=== PATIENT | female | born 1995 | race Caucasian/White ===

== ENCOUNTER 2021-11-01 12:03 | Emergency (ER) | payer OTHER, SELFPAY ==
--- NOTE | ~2021-11-01 | US_ITS ---
EXAMINATION: US OB <=14 wk fetus w TV DATE: 11/01/2021 13:46 INDICATION: Bleeding and pelvic pain during first trimester TECHNIQUE: Real-time pelvic transabdominal and transvaginal ultrasound was performed. COMPARISON: None. FINDINGS: The uterus measures 8.5 x 3.0 x 3.8 cm. No intrauterine gestational sac is identified. The right ovary measures 2.4 x 1.5 x 2.1 cm. The left ovary measures 2.3 x 1.3 x 1.3 cm. There is normal vascular flow in the ovaries. There is no free fluid in the pelvis. IMPRESSION: 1. of unknown location. Although no intrauterine gestational sac is seen, this may be due t o early gestation. If the patient is clinically stable, recommend followup with serial beta-hCG and u ltrasound. Reviewed, dictated and finalized at location B. L ENG[employer]ING DIRECTOR IMPRESSION: 1. of unknown location. Although no intrauterine gestational sac is s een, this may be due to early gestation. If the patient is clinically stable, r ecommend followup with serial beta-hCG and ultrasound.
[2021-11-01 12:07] VITALS: BP 157/102; PULSE 76; RESP 18; TEMP 36.8; O2SAT 100
[2021-11-01 12:23] LABS: Basophils Absolute Auto 0.1 K/mm3 (0.0-0.1); Basophils Percent Auto 0.8 % (0.2-1.2); Eosinophils Absolute Auto 0.1 K/mm3 (0-0.3); Eosinophils Percent Auto 0.7 % (0-4.4); Hematocrit 41.6 % (37.0-47.0); Hemoglobin 13.8 g/dL (12.0-15.0); Immature Granulocyte Absolute 0.03 K/mm3 (0.00-0.031); Immature Granulocyte Percent A 0.3 % (0-0.5); Lymphocytes Percent Auto 37.2 % (18.3-44.2); Mean Corpuscular HGB Conc 33.2 g/dl (32-36); Mean Corpuscular Hemoglobin 30.1 pg (26-34); Mean Corpuscular Volume 90.6 fl (80-100); Mean Platelet Volume 9.2 fl (7.4-10.4); Monocytes Absolute Auto 1.1 K/mm3 (0.1-0.6); Monocytes Percent Auto 11.1 % (2.6-8.5); Neutrophils Absolute Auto 5.1 K/mm3 (1.3-6.7); Neutrophils Percent Auto 49.9 % (45.5-73.1); Platelet Count Result 459 k/mm3 (150-375); Red Blood Count 4.59 M/mm3 (4.2-5.4); Red Cell Distribution Width 12.8 % (11.5-14.5); White Blood Count 10.2 K/mm3 (4.5-10.0)
[2021-11-01 12:55] VITALS: BP 146/99; PULSE 76; RESP 18; O2SAT 99
[2021-11-01 12:56] LABS: Beta HCG Quantitative 15.35 mIU/ML
[2021-11-01 15:29] LABS: Alanine Aminotransferase 40 U/L (4-35); Albumin Level 4.9 g/dL (3.5-5.1); Alkaline Phosphatase 56 U/L (38-126); Anion Gap 10 mmol/L (8-16); Aspartate Amino Transferase 39 U/L (14-36); Bilirubin,Total 0.4 mg/dL (0.2-1.3); Blood Urea Nitrogen 9 mg/dL (7-17); Calcium 9.4 mg/dL (8.4-10.2); Carbon Dioxide 24 mmol/L (22-30); Chloride 102 mmol/L (98-107); Estimated CRCL calculation 100 ml/min; Estimated Glomerular Filt Rate > 60; Glucose 105 mg/dL (65-110); Potassium 3.9 mmol/L (3.4-5.0); Sodium 136 mmol/L (137-145)
--- NOTE | 2021-11-01 15:44 | ED.GENADULT ---
HPI - General Adult General Chief complaint: Vaginal Bleeding Stated complaint: vaginal bleeding/cramping Time Seen by Provider: 11/01/21 12:58 History of Present Illness HPI narrative: Patient is a 26-year-old female who presents ER with vaginal bleeding and . She had a positive test last Thursday 2 days after having missed her period. She is a G1, P0. She began having some vaginal cramping with spotting last night with increased bleeding and cramping today. She passed a small piece of material. No additional vaginal discharge. No fevers or chills or sweats. Related Data Home Medications Medication Instructions Recorded Confirmed escitalopram oxalate 20 mg tablet 20 mg PO DAILY 04/13/20 09/21/20 Allergies Allergy/AdvReac Type Severity Reaction Status Date / Time No Known Allergies Allergy Unverified 11/01/21 12:58 Review of Systems Review of Systems: All systems reviewed & are unremarkable except as noted in HPI and below Constitutional: Constitutional: Denies chills, Denies fever(s) and Denies weakness Gastrointestinal: Gastrointestinal: Reports abdominal pain, Denies diarrhea, Denies nausea and Denies vomiting Genitourinary: Genitourinary: Reports abnormal vaginal bleeding, Denies nocturia, Denies dysuria, Denies flank pain and Denies vaginal discharge [facility] Past Medical History Medical History Depression IBS (irritable bowel syndrome) Surgical History Surgical History No history of previous surgery Family History Family History Other Depression Social History Social History Smoking status: Current some day smoker Tobacco type: e-cigarettes/vaping Alcohol intake: current Exam Narrative: GENERAL: Well-appearing, well-nourished, and in no acute distress. HEAD: Normocephalic, atraumatic. CHEST: Clear to auscultation. No respiratory distress. HEART: Regular rate and rhythm. Normal peripheral pulses. ABDOMEN: Soft, nontender, nondistended. EXTREMITIES: Normal range of motion. No edema. SKIN: Warm, dry, no rash. NEURO: Alert and oriented x3. PSYCH: Normal mood and affect. Course Course Emergency Course: Discussed with Dr. Oliveira. Patient given bleeding precautions. Likely miscarriage. Needs to f/u on 11/04/21 for repeat lab work. Patient verbalized understanding treatment plan. Vital Signs Vital signs: Vital Signs Temperature 98.3 F 11/01/21 12:07 Pulse Rate 76 11/01/21 12:07 Respiratory Rate 18 11/01/21 12:07 Blood Pressure 157/102 H 11/01/21 12:07 Pulse Oximetry 100 11/01/21 12:07 Temperature 98.3 F 11/01/21 12:07 Pulse Rate 76 11/01/21 12:55 Respiratory Rate 18 11/01/21 12:55 Blood Pressure 146/99 H 11/01/21 12:55 Pulse Oximetry 99 11/01/21 12:55 Medical Decision Making Vital Signs Vital Signs: Vital Signs Temperature 98.3 F 11/01/21 12:07 Pulse Rate 76 11/01/21 12:07 Respiratory Rate 18 11/01/21 12:07 Blood Pressure 157/102 H 11/01/21 12:07 Pulse Oximetry 100 11/01/21 12:07 Temperature 98.3 F 11/01/21 12:07 Pulse Rate 76 11/01/21 12:55 Respiratory Rate 18 11/01/21 12:55 Blood Pressure 146/99 H 11/01/21 12:55 Pulse Oximetry 99 11/01/21 12:55 Lab Data Result diagrams: 11/01/21 12:17 11/01/21 12:17 Labs: Lab Results 11/01/21 11/01/21 11/01/21 Range/Units 12:17 12:17 12:17 WBC 10.2 H (4.5-10.0) K/mm3 RBC 4.59 (4.2-5.4) M/mm3 Hgb 13.8 (12.0-15.0) g/dL Hct 41.6 (37.0-47.0) % MCV 90.6 (80-100) fl MCH 30.1 (26-34) pg MCHC 33.2 (32-36) g/dl RDW 12.8 (11.5-14.5) % Plt Count 459 H (150-375) k/mm3 MPV 9.2 (7.4-10.4) fl Immature Gran % (Auto) 0.3 (0-0.5) % Neut % (Auto) 49.9 (45
[2021-11-01 16:07] VITALS: BP 132/72; PULSE 76; RESP 18; O2SAT 99
== END 2021-11-01 16:07 | disposition home or self-care (01) ==
PROVIDERS: Emergency Medicine; Emergency Provider Emergency Medicine; PCP Family Medicine
DX: O20.0 Threatened abortion (principal); O99.611 Diseases of the digestive system complicating pregnancy, first trimester; K58.9 Irritable bowel syndrome, unspecified; O99.341 Other mental disorders complicating pregnancy, first trimester; F32.A Depression, unspecified; Z3A.01 Less than 8 weeks gestation of pregnancy
CPT/HCPCS: 36415; 76801; 76817; 80053; 84702; 85025; 85461; 99284